=== PATIENT | female | born 1930 | race Caucasian/White ===

== ENCOUNTER 2016-11-29 13:20 | Emergency (ER) | payer OTHER ==
[~2016-11-29] VITALS: Ht 160 cm; Wt 56.7 kg
[~2016-11-29 13:20] MED LIST: CAT.1 PO; LIP10 PO; LISI-209 PO; RIVA1TAB PO
[2016-11-29 13:28] VITALS: BP_SYST 148
[2016-11-29] MEDS ORDERED: NIZA150C7 PO (13:52)
[2016-11-29] MEDS ORDERED: METO-442 PO (13:52)
[2016-11-29] MEDS ORDERED: PANT20TA2 PO (13:52)
[2016-11-29] MEDS ORDERED: RIVA15TA PO (13:52)
[2016-11-29] MEDS ORDERED: HYDR25TA4 PO (13:57)
[2016-11-29] MEDS ORDERED: DILT60CA PO (13:57)
[2016-11-29] MEDS ORDERED: ATOR10TA68 PO (13:57)
[2016-11-29] MEDS ORDERED: LISI2.5T48 PO (13:57)
[2016-11-29 14:41] LABS: BILIRUBIN,URINE 1+ (NEGATIVE); CLARITY/URINE CLEAR (CLEAR); COLOR,URINE YELLOW (YELLOW); GLUCOSE,URINE NEGATIVE (NEGATIVE); KETONES,URINE TRACE (NEGATIVE); LEUKOCYTE ESTERASE ,URINE NEGATIVE (NEGATIVE); NITRITE, URINE NEGATIVE (NEGATIVE); PH,URINE 5.5 (5.0-8.0); PROTEIN URINE NEGATIVE (NEGATIVE); UROBILINOGEN,URINE 0.2 (0.2-1.0)
[2016-11-29 14:43] LABS: BLOOD, URINE TRACE (NEGATIVE)
[2016-11-29 15:06] LABS: BACTERIA,URINE FEW /HPF (None Seen); COARSE GRANULAR CASTS,URINE 0-3 /LPF (None Seen); FINE GRANULAR CASTS,URINE 0-3 /LPF (None Seen); MUCUS,URINE 1+ /LPF (None Seen); RBC,URINE 0-3 /HPF (0-3); URINE AMORPHOUS PHOSPHATES 2+ /HPF (None Seen)
[2016-11-29 15:06] LABS: ANION GAP 8 (5-15); BASOPHILS % (AUTO) 0.3 % (0.0-2.0); CALCIUM 8.6 mg/dL (8.4-11.0); CHLORIDE 103 mmol/L (98-107); CREATININE 1.68 mg/dL (0.55-1.30); EOSINOPHILS # (AUTO) 0.1 K/uL (0.0-0.4); EOSINOPHILS % (AUTO) 0.6 % (0.0-4.0); GLUCOSE 164 mg/dL (70-99); HEMOGLOBIN 12.1 g/dL (12.0-16.0); LYMPHOCYTES # (AUTO) 0.5 K/uL (1.0-5.5); LYMPHOCYTES % (AUTO) 5.9 % (20.5-51.5); MEAN CORPUSCULAR HEMOGLOBIN 32 pg (27-31); MEAN CORPUSCULAR HGB CONC 34 % (32-36); MEAN CORPUSCULAR VOLUME 96 fL (79.0-98.0); MONOCYTES # (AUTO) 0.5 K/uL (0.0-1.0); MONOCYTES % (AUTO) 5.8 % (1.7-9.3); NEUTROPHILS # (AUTO) 7.8 K/uL (1.8-7.7); NEUTROPHILS % (AUTO) 87.4 % (40.0-70.0); PLATELET COUNT (AUTO) 309 K/uL (130-430); POTASSIUM 3.6 mmol/L (3.5-5.1); RED BLOOD CELL COUNT(AUTO) 3.74 MIL/uL (4.2-6.2); RED CELL DISTRIBUTION WIDTH 13.1 % (9.0-15.0); SODIUM SERUM 138 mmol/L (136-145); UREA NITROGEN, BLOOD 24 mg/dL (8-21); WHITE BLOOD COUNT (AUTO) 8.9 K/uL (4.8-10.8)
[2016-11-29 15:19] LABS: ALANINE AMINOTRANSFERASE 11 U/L (12-78); ALBUMIN 3.4 g/dL (3.4-4.8); ASPARTATE AMINOTRANSFERASE 15 U/L (10-37); TOTAL BILIRUBIN 0.6 mg/dL (0.0-1.0); TOTAL PROTEIN, SERUM 6.5 g/dL (6.4-8.3)
[2016-11-29 15:52] VITALS: BP_SYST 154
== END 2016-11-29 15:52 | disposition home or self-care (01) ==
LOC: SED 13:20
DX: R23.2 Flushing (principal); T36.8X5A Adverse effect of other systemic antibiotics, initial encounter; J44.9 Chronic obstructive pulmonary disease, unspecified; I10 Essential (primary) hypertension; I48.91 Unspecified atrial fibrillation; F17.200 Nicotine dependence, unspecified, uncomplicated; Z86.73 Personal history of transient ischemic attack (TIA), and cerebral infarction without residual deficits; Z79.899 Other long term (current) drug therapy; Y92.89 Other specified places as the place of occurrence of the external cause
CPT/HCPCS: 36415; 80053; 81000-TC; 85025; 93005; 99285

== ENCOUNTER 2018-02-04 10:45 | Inpatient (IN) | payer OTHER ==
[~2018-02-04] VITALS: Ht 157.5 cm; Wt 51.9 kg
[2018-02-04] VITALS (7 sets, daily range): BP systolic 122–200
[~2018-02-04 10:45] MED LIST changes: +ATOR10TA68 PO; +DILT60CA PO; +HYDR25TA4 PO; -LIP10 PO; -LISI-209 PO; +LISI2.5T48 PO; +METO-442 PO; +NIZA150C7 PO; +PANT20TA2 PO; +RIVA15TA PO; -RIVA1TAB PO
[2018-02-04 11:43] LABS: BASOPHILS % (AUTO) 0.7 % (0.0-2.0); EOSINOPHILS % (AUTO) 0.6 % (0.0-4.0); HEMATOCRIT 42.5 % (36-48); HEMOGLOBIN 13.3 g/dL (12.0-16.0); LYMPHOCYTES # (AUTO) 0.5 K/uL (1.0-5.5); LYMPHOCYTES % (AUTO) 7.6 % (20.5-51.5); MEAN CORPUSCULAR HEMOGLOBIN 31 pg (27-31); MEAN CORPUSCULAR HGB CONC 31 % (32-36); MEAN CORPUSCULAR VOLUME 99 fL (79.0-98.0); MONOCYTES # (AUTO) 0.3 K/uL (0.0-1.0); MONOCYTES % (AUTO) 5.3 % (1.7-9.3); NEUTROPHILS # (AUTO) 5.4 K/uL (1.8-7.7); NEUTROPHILS % (AUTO) 85.8 % (40.0-70.0); PLATELET COUNT (AUTO) 384 K/uL (130-430); RED BLOOD CELL COUNT(AUTO) 4.31 MIL/uL (4.2-6.2); RED CELL DISTRIBUTION WIDTH 13.2 % (9.0-15.0); WHITE BLOOD COUNT (AUTO) 6.2 K/uL (4.8-10.8)
[2018-02-04 11:57] LABS: ANION GAP 9 (5-15); CALCIUM 9.7 mg/dL (8.4-11.0); CHLORIDE 102 mmol/L (98-107); CREATININE 1.17 mg/dL (0.55-1.30); GLUCOSE 171 mg/dL (70-99); POTASSIUM 4.4 mmol/L (3.5-5.1); SODIUM SERUM 141 mmol/L (136-145); UREA NITROGEN, BLOOD 17 mg/dL (8-21)
[2018-02-04 12:01] LABS: INR 1.5 (0.8-1.2)
[2018-02-04 12:02] LABS: ALANINE AMINOTRANSFERASE 14 U/L (12-78); ALBUMIN 3.5 g/dL (3.4-4.8); ASPARTATE AMINOTRANSFERASE 16 U/L (10-37); TOTAL BILIRUBIN 1.3 mg/dL (0.0-1.0)
[2018-02-04 13:34] LABS: BILIRUBIN,URINE NEGATIVE (NEGATIVE); BLOOD, URINE 2+ (NEGATIVE); CLARITY/URINE SL HAZY (CLEAR); COLOR,URINE YELLOW (YELLOW); GLUCOSE,URINE NEGATIVE (NEGATIVE); KETONES,URINE TRACE (NEGATIVE); LEUKOCYTE ESTERASE ,URINE NEGATIVE (NEGATIVE); NITRITE, URINE POSITIVE (NEGATIVE); PH,URINE 5.5 (5.0-8.0); PROTEIN URINE TRACE (NEGATIVE); UROBILINOGEN,URINE 0.2 (0.2-1.0)
[2018-02-04 14:21] LABS: WBC,URINE 0-3 /HPF (0-3)
[2018-02-04 14:22] LABS: BACTERIA,URINE MANY /HPF (None Seen); MUCUS,URINE None Seen /LPF (None Seen); YEAST,URINE None Seen /HPF (None Seen)
[2018-02-04] MEDS: ATORVASTATIN 10 MG TABLET PO SCH (15:15)
[2018-02-04] MEDS ORDERED: NIZATIDINE 150 MG PO SCH (15:15)
[2018-02-04] MEDS ORDERED: cloNIDine HCL 0.2 MG TABLET PO PRN (15:30)
[2018-02-04] MEDS ORDERED: ATORVASTATIN 10 MG TABLET PO ONE (16:00)
[2018-02-04] MEDS ORDERED: cefTRIAXone 1 GM in D5W 50 ML IV ONE (16:15)
[2018-02-04] MEDS ORDERED: COMMUNICATION ORDER XX ONE (17:45)
[2018-02-04] MEDS: METOPROLOL TARTRATE 50 MG TABLET PO SCH (20:58)
[2018-02-04] MEDS: FUROSEMIDE 20 MG/2 ML VIAL IVP SCH (20:59)
[2018-02-04] MEDS: LISINOPRIL 5 MG TABLET PO SCH (20:59)
[2018-02-04] MEDS ORDERED: DILTIAZEM HCL 60 MG PO SCH (21:00)
[2018-02-05 01:32] VITALS: BP_SYST 139
[2018-02-05] MEDS: PANTOPRAZOLE SODIUM 40 MG TAB PO SCH (06:30)
[2018-02-05 06:52] LABS: BASOPHILS # (AUTO) 0.1 K/uL (0.0-0.2); BASOPHILS % (AUTO) 1.3 % (0.0-2.0); EOSINOPHILS # (AUTO) 0.1 K/uL (0.0-0.4); EOSINOPHILS % (AUTO) 2.7 % (0.0-4.0); HEMATOCRIT 36.4 % (36-48); HEMOGLOBIN 12.3 g/dL (12.0-16.0); LYMPHOCYTES # (AUTO) 0.7 K/uL (1.0-5.5); LYMPHOCYTES % (AUTO) 13.1 % (20.5-51.5); MEAN CORPUSCULAR HEMOGLOBIN 33 pg (27-31); MEAN CORPUSCULAR HGB CONC 34 % (32-36); MEAN CORPUSCULAR VOLUME 98 fL (79.0-98.0); MONOCYTES # (AUTO) 0.6 K/uL (0.0-1.0); MONOCYTES % (AUTO) 10.9 % (1.7-9.3); NEUTROPHILS # (AUTO) 3.6 K/uL (1.8-7.7); PLATELET COUNT (AUTO) 327 K/uL (130-430); RED BLOOD CELL COUNT(AUTO) 3.72 MIL/uL (4.2-6.2); RED CELL DISTRIBUTION WIDTH 13.3 % (9.0-15.0); WHITE BLOOD COUNT (AUTO) 5.1 K/uL (4.8-10.8)
[2018-02-05 07:01] LABS: ANION GAP 7 (5-15); CALCIUM 8.9 mg/dL (8.4-11.0); CHLORIDE 103 mmol/L (98-107); CREATININE 1.16 mg/dL (0.55-1.30); GLUCOSE 91 mg/dL (70-99); POTASSIUM 4.4 mmol/L (3.5-5.1); SODIUM SERUM 141 mmol/L (136-145); UREA NITROGEN, BLOOD 15 mg/dL (8-21)
[2018-02-05 07:53] VITALS: BP_SYST 147
[2018-02-05] MEDS ORDERED: ENOXAPARIN SODIUM 40 MG/0.4 ML SYRINGE SUBCUT SCH (09:00)
[2018-02-05] MEDS ORDERED: PANTOPRAZOLE PO SCH (09:00)
[2018-02-05] MEDS: LISINOPRIL 5 MG TABLET PO SCH ×2 (09:42→20:00)
[2018-02-05] MEDS: ATORVASTATIN 10 MG TABLET PO SCH (09:42)
[2018-02-05] MEDS: HYDROCHLOROTHIAZIDE 25 MG TABLET (HCTZ) PO SCH (09:42)
[2018-02-05] MEDS: METOPROLOL TARTRATE 50 MG TABLET PO SCH ×2 (09:43→20:01)
[2018-02-05] MEDS: FUROSEMIDE 20 MG/2 ML VIAL IVP SCH ×2 (09:50→20:02)
[2018-02-05] MEDS: cefTRIAXone 1 GM in D5W 50 ML IV SCH (09:51)
[2018-02-05] MEDS: DILTIAZEM HCL 120 MG CAP.SR.24H PO SCH (09:54)
[2018-02-05 12:10] VITALS: BP_SYST 129
[2018-02-05 16:48] VITALS: BP_SYST 136
[2018-02-05] MEDS: RIVAROXABAN 15 MG TABLET PO SCH (19:20)
[2018-02-05 19:55] VITALS: BP_SYST 128
[2018-02-06] VITALS (7 sets, daily range): BP systolic 100–160
[2018-02-06 06:39] LABS: ALANINE AMINOTRANSFERASE 12 U/L (12-78); ANION GAP 7 (5-15); ASPARTATE AMINOTRANSFERASE 18 U/L (10-37); CALCIUM 9.3 mg/dL (8.4-11.0); CHLORIDE 100 mmol/L (98-107); CHOLESTEROL 143 mg/dL (<200); CREATININE 1.39 mg/dL (0.55-1.30); GLUCOSE 84 mg/dL (70-99); HDL CHOLESTEROL 47 mg/dL (>55); LDL CHOLESTEROL 82 mg/dL (<100); POTASSIUM 3.3 mmol/L (3.5-5.1); SODIUM SERUM 139 mmol/L (136-145); THYROID STIMULATING HORMONE 3.16 uIu/mL (0.34-4.82); TOTAL BILIRUBIN 0.9 mg/dL (0.0-1.0); TRIGLYCERIDES 114 mg/dL (30-150); UREA NITROGEN, BLOOD 19 mg/dL (8-21)
[2018-02-06] MEDS: PANTOPRAZOLE SODIUM 40 MG TAB PO SCH (06:53)
[2018-02-06 06:59] LABS: BASOPHILS # (AUTO) 0.1 K/uL (0.0-0.2); BASOPHILS % (AUTO) 1.4 % (0.0-2.0); EOSINOPHILS # (AUTO) 0.1 K/uL (0.0-0.4); EOSINOPHILS % (AUTO) 2.4 % (0.0-4.0); HEMATOCRIT 40.4 % (36-48); HEMOGLOBIN 12.9 g/dL (12.0-16.0); LYMPHOCYTES # (AUTO) 0.9 K/uL (1.0-5.5); LYMPHOCYTES % (AUTO) 15.5 % (20.5-51.5); MEAN CORPUSCULAR HEMOGLOBIN 31 pg (27-31); MEAN CORPUSCULAR HGB CONC 32 % (32-36); MEAN CORPUSCULAR VOLUME 98 fL (79.0-98.0); MONOCYTES # (AUTO) 0.6 K/uL (0.0-1.0); NEUTROPHILS # (AUTO) 3.8 K/uL (1.8-7.7); NEUTROPHILS % (AUTO) 70.7 % (40.0-70.0); PLATELET COUNT (AUTO) 371 K/uL (130-430); RED BLOOD CELL COUNT(AUTO) 4.12 MIL/uL (4.2-6.2); RED CELL DISTRIBUTION WIDTH 13.3 % (9.0-15.0); WHITE BLOOD COUNT (AUTO) 5.5 K/uL (4.8-10.8)
[2018-02-06] MEDS: HYDROCHLOROTHIAZIDE 25 MG TABLET (HCTZ) PO SCH (09:20)
[2018-02-06] MEDS: LISINOPRIL 5 MG TABLET PO SCH ×2 (09:21→20:21)
[2018-02-06] MEDS: METOPROLOL TARTRATE 50 MG TABLET PO SCH ×2 (09:21→20:21)
[2018-02-06] MEDS: FUROSEMIDE 20 MG/2 ML VIAL IVP SCH ×2 (09:22→20:22)
[2018-02-06] MEDS: cefTRIAXone 1 GM in D5W 50 ML IV SCH (09:23)
[2018-02-06] MEDS: DILTIAZEM HCL 120 MG CAP.SR.24H PO SCH (09:24)
[2018-02-06] MEDS: ATORVASTATIN 10 MG TABLET PO SCH (09:24)
[2018-02-06] MEDS ORDERED: POTASSIUM CHLORIDE 20 MEQ TAB.PRT.SR PO ONE (13:00)
[2018-02-06] MEDS: RIVAROXABAN 15 MG TABLET PO SCH (18:09)
[2018-02-07] MEDS: ATORVASTATIN 10 MG TABLET PO SCH (08:30)
[2018-02-07] MEDS: cefTRIAXone 1 GM in D5W 50 ML IV SCH (08:30)
[2018-02-07] MEDS: PANTOPRAZOLE SODIUM 40 MG TAB PO SCH (08:30)
[2018-02-07] MEDS: LISINOPRIL 5 MG TABLET PO SCH ×2 (08:32→21:19)
[2018-02-07] MEDS: METOPROLOL TARTRATE 50 MG TABLET PO SCH ×2 (08:33→21:20)
[2018-02-07] MEDS: DILTIAZEM HCL 120 MG CAP.SR.24H PO SCH (08:33)
[2018-02-07] MEDS: FUROSEMIDE 20 MG/2 ML VIAL IVP SCH ×2 (08:34→21:00)
[2018-02-07] MEDS: HYDROCHLOROTHIAZIDE 25 MG TABLET (HCTZ) PO SCH (08:34)
[2018-02-07 08:45] VITALS: BP_SYST 161
[2018-02-07 12:40] VITALS: BP_SYST 139
[2018-02-07 17:03] VITALS: BP_SYST 129
[2018-02-07] MEDS: RIVAROXABAN 15 MG TABLET PO SCH (17:58)
[2018-02-07 20:00] VITALS: BP_SYST 150
[2018-02-08] VITALS: BP_SYST 131
[2018-02-08] MEDS: PANTOPRAZOLE SODIUM 40 MG TAB PO SCH (06:44)
[2018-02-08] MEDS: FUROSEMIDE 20 MG/2 ML VIAL IVP SCH ×2 (08:19→22:51)
[2018-02-08] MEDS: LISINOPRIL 5 MG TABLET PO SCH ×2 (08:20→22:50)
[2018-02-08] MEDS: METOPROLOL TARTRATE 50 MG TABLET PO SCH ×2 (08:20→22:50)
[2018-02-08] MEDS: ATORVASTATIN 10 MG TABLET PO SCH (08:20)
[2018-02-08] MEDS: DILTIAZEM HCL 120 MG CAP.SR.24H PO SCH (08:21)
[2018-02-08] MEDS: HYDROCHLOROTHIAZIDE 25 MG TABLET (HCTZ) PO SCH (08:21)
[2018-02-08] MEDS: cefTRIAXone 1 GM in D5W 50 ML IV SCH (08:22)
[2018-02-08 08:25] VITALS: BP_SYST 146
[2018-02-08 13:04] VITALS: BP_SYST 117
[2018-02-08 16:50] VITALS: BP_SYST 115
[2018-02-08] MEDS: RIVAROXABAN 15 MG TABLET PO SCH (17:08)
[2018-02-08] MEDS ORDERED: POTASSIUM CHLORIDE 20 MEQ/PKT PACKET PO ONE (19:45)
[2018-02-08] MEDS ORDERED: POTASSIUM CHLORIDE 10 MEQ TAB.PRT.SR PO SCH (23:30)
[2018-02-08 23:45] VITALS: BP_SYST 125
[2018-02-09] MEDS: PANTOPRAZOLE SODIUM 40 MG TAB PO SCH (06:35)
[2018-02-09 07:00] LABS: BASOPHILS # (AUTO) 0.1 K/uL (0.0-0.2); BASOPHILS % (AUTO) 0.9 % (0.0-2.0); EOSINOPHILS # (AUTO) 0.1 K/uL (0.0-0.4); EOSINOPHILS % (AUTO) 2.1 % (0.0-4.0); HEMATOCRIT 42.6 % (36-48); HEMOGLOBIN 13.9 g/dL (12.0-16.0); LYMPHOCYTES # (AUTO) 0.9 K/uL (1.0-5.5); LYMPHOCYTES % (AUTO) 13.7 % (20.5-51.5); MEAN CORPUSCULAR HEMOGLOBIN 32 pg (27-31); MEAN CORPUSCULAR HGB CONC 33 % (32-36); MEAN CORPUSCULAR VOLUME 98 fL (79.0-98.0); MONOCYTES # (AUTO) 0.8 K/uL (0.0-1.0); MONOCYTES % (AUTO) 11.7 % (1.7-9.3); NEUTROPHILS # (AUTO) 4.6 K/uL (1.8-7.7); NEUTROPHILS % (AUTO) 71.6 % (40.0-70.0); PLATELET COUNT (AUTO) 360 K/uL (130-430); RED BLOOD CELL COUNT(AUTO) 4.36 MIL/uL (4.2-6.2); RED CELL DISTRIBUTION WIDTH 13.1 % (9.0-15.0); WHITE BLOOD COUNT (AUTO) 6.5 K/uL (4.8-10.8)
[2018-02-09 07:22] LABS: ANION GAP 12 (5-15); CHLORIDE 97 mmol/L (98-107); GLUCOSE 110 mg/dL (70-99); POTASSIUM 3.5 mmol/L (3.5-5.1); SODIUM SERUM 139 mmol/L (136-145); UREA NITROGEN, BLOOD 29 mg/dL (8-21)
[2018-02-09 08:00] VITALS: BP_SYST 124
[2018-02-09] MEDS: cefTRIAXone 1 GM in D5W 50 ML IV SCH (08:19)
[2018-02-09] MEDS: FUROSEMIDE 20 MG/2 ML VIAL IVP SCH (08:21)
[2018-02-09] MEDS: METOPROLOL TARTRATE 50 MG TABLET PO SCH (08:22)
[2018-02-09] MEDS: ATORVASTATIN 10 MG TABLET PO SCH (08:22)
[2018-02-09] MEDS: LISINOPRIL 5 MG TABLET PO SCH (08:22)
[2018-02-09] MEDS: DILTIAZEM HCL 120 MG CAP.SR.24H PO SCH (08:23)
[2018-02-09] MEDS: HYDROCHLOROTHIAZIDE 25 MG TABLET (HCTZ) PO SCH (08:23)
[2018-02-09 10:51] VITALS: BP_SYST 114
[2018-02-09 12:39] VITALS: BP_SYST 116
[2018-02-10] MEDS ORDERED: FUROSEMIDE 20 MG TABLET PO SCH (09:00)
== END 2018-02-09 14:21 | DRG 291 ==
LOC: SED 10:45 → STU 12:48
PROVIDERS: ADMIT Family Medicine; ATTEND Family Medicine
DX: I13.0 Hypertensive heart and chronic kidney disease with heart failure and stage 1 through stage 4 chronic kidney disease, or unspecified chronic kidney disease (principal); J18.9 Pneumonia, unspecified organism; I50.43 Acute on chronic combined systolic (congestive) and diastolic (congestive) heart failure; N39.0 Urinary tract infection, site not specified; J44.0 Chronic obstructive pulmonary disease with (acute) lower respiratory infection; M19.90 Unspecified osteoarthritis, unspecified site; J20.9 Acute bronchitis, unspecified; I27.20 Pulmonary hypertension, unspecified; I48.2 Chronic atrial fibrillation; N18.9 Chronic kidney disease, unspecified; Z86.73 Personal history of transient ischemic attack (TIA), and cerebral infarction without residual deficits; Z90.710 Acquired absence of both cervix and uterus; Z79.899 Other long term (current) drug therapy; Z79.01 Long term (current) use of anticoagulants; Z91.040 Latex allergy status; Z87.81 Personal history of (healed) traumatic fracture
CPT/HCPCS: 36415; 36600; 71045; 80048; 80053; 80061; 81000-TC; 82803-TC; 83605; 83880; 84443-TC; 84484; 85025; 85610-TC; 85730-TC; 87040-TC; 87086; 93005; 93306; 96365; 97116-GP; 99291; J0696; J1940; J1956; J7060

== ENCOUNTER 2018-06-07 12:21 | Inpatient (IN) | payer OTHER ==
[~2018-06-07] VITALS: Ht 160 cm; Wt 47.9 kg
[~2018-06-07 12:21] MED LIST changes: -CAT.1 PO; -NIZA150C7 PO
[2018-06-07 12:24] VITALS: BP_SYST 99
[2018-06-07] MEDS ORDERED: DILTIAZEM HCL 25 MG/5 ML VIAL IVP ONE (13:15)
[2018-06-07 13:27] LABS: BASOPHILS # (AUTO) 0.1 K/uL (0.0-0.2); BASOPHILS % (AUTO) 0.6 % (0.0-2.0); EOSINOPHILS % (AUTO) 0.3 % (0.0-4.0); HEMATOCRIT 42.5 % (36-48); HEMOGLOBIN 13.9 g/dL (12.0-16.0); LYMPHOCYTES # (AUTO) 0.5 K/uL (1.0-5.5); MEAN CORPUSCULAR HEMOGLOBIN 32 pg (27-31); MEAN CORPUSCULAR HGB CONC 33 % (32-36); MEAN CORPUSCULAR VOLUME 99 fL (79.0-98.0); MONOCYTES # (AUTO) 0.6 K/uL (0.0-1.0); MONOCYTES % (AUTO) 6.4 % (1.7-9.3); NEUTROPHILS # (AUTO) 7.5 K/uL (1.8-7.7); NEUTROPHILS % (AUTO) 86.7 % (40.0-70.0); PLATELET COUNT (AUTO) 514 K/uL (130-430); RED BLOOD CELL COUNT(AUTO) 4.32 MIL/uL (4.2-6.2); RED CELL DISTRIBUTION WIDTH 14.7 % (9.0-15.0); WHITE BLOOD COUNT (AUTO) 8.7 K/uL (4.8-10.8)
[2018-06-07 13:44] LABS: ANION GAP 13 (5-15); CALCIUM 9.1 mg/dL (8.4-11.0); CHLORIDE 98 mmol/L (98-107); CREATININE 1.33 mg/dL (0.55-1.30); GLUCOSE 81 mg/dL (70-99); POTASSIUM 4.6 mmol/L (3.5-5.1); SODIUM SERUM 135 mmol/L (136-145); UREA NITROGEN, BLOOD 23 mg/dL (8-21)
[2018-06-07 13:47] LABS: INR 1.5 (0.8-1.2); PROTHROMBIN TIME 14.9 SECS (9.5-12.5)
[2018-06-07 13:49] LABS: ALANINE AMINOTRANSFERASE 10 U/L (12-78); ALBUMIN 2.9 g/dL (3.4-4.8); ASPARTATE AMINOTRANSFERASE 16 U/L (10-37); TOTAL BILIRUBIN 1.1 mg/dL (0.0-1.0)
[2018-06-07] MEDS ORDERED: FURO-150 PO (14:51)
[2018-06-07] MEDS ORDERED: IPRA3AMP9 INH (14:51)
[2018-06-07] MEDS ORDERED: POTA10TA15 PO (14:51)
[2018-06-07] MEDS ORDERED: [UNRECOGNIZED DRUG - CODE] PO (14:51)
[2018-06-07] MEDS ORDERED: LEVO750T45 PO (14:51)
[2018-06-07 16:32] VITALS: BP_SYST 125
[2018-06-07] MEDS ORDERED: ATORVASTATIN 10 MG TABLET PO ONE (18:30)
[2018-06-07] MEDS ORDERED: LISINOPRIL 5 MG TABLET PO ONE (18:30)
[2018-06-07] MEDS ORDERED: guaiFENesin/DEXTROMETHORPHAN 10 ML UDC PO PRN (18:30)
[2018-06-07] MEDS ORDERED: FUROSEMIDE 20 MG/2 ML VIAL IVP ONE (18:45)
[2018-06-07] MEDS ORDERED: LevALBUTEROL HCL 1.25 MG/0.5 ML *CONC.* VIAL.NEB (XOPENEX CONC.) INH PRN (18:45)
[2018-06-07 20:00] VITALS: BP_SYST 107
[2018-06-07] MEDS ORDERED: FUROSEMIDE 20 MG/2 ML VIAL IVP SCH (21:00)
[2018-06-07] MEDS: METOPROLOL TARTRATE 50 MG TABLET PO SCH (21:00)
[2018-06-07] MEDS: DILTIAZEM HCL 60 MG TABLET PO SCH (21:02)
[2018-06-07 23:26] VITALS: BP_SYST 107
[2018-06-08 01:28] VITALS: BP_SYST 108
[2018-06-08 07:17] LABS: BASOPHILS % (AUTO) 0.4 % (0.0-2.0); EOSINOPHILS # (AUTO) 0.1 K/uL (0.0-0.4); EOSINOPHILS % (AUTO) 0.9 % (0.0-4.0); HEMATOCRIT 39.5 % (36-48); LYMPHOCYTES # (AUTO) 0.4 K/uL (1.0-5.5); LYMPHOCYTES % (AUTO) 5.3 % (20.5-51.5); MEAN CORPUSCULAR HEMOGLOBIN 33 pg (27-31); MEAN CORPUSCULAR HGB CONC 33 % (32-36); MEAN CORPUSCULAR VOLUME 99 fL (79.0-98.0); MONOCYTES # (AUTO) 0.6 K/uL (0.0-1.0); MONOCYTES % (AUTO) 6.7 % (1.7-9.3); NEUTROPHILS # (AUTO) 7.4 K/uL (1.8-7.7); NEUTROPHILS % (AUTO) 86.7 % (40.0-70.0); PLATELET COUNT (AUTO) 441 K/uL (130-430); RED BLOOD CELL COUNT(AUTO) 3.99 MIL/uL (4.2-6.2); RED CELL DISTRIBUTION WIDTH 14.5 % (9.0-15.0); WHITE BLOOD COUNT (AUTO) 8.5 K/uL (4.8-10.8)
[2018-06-08 07:41] LABS: ALANINE AMINOTRANSFERASE 9 U/L (12-78); ALBUMIN 2.8 g/dL (3.4-4.8); ANION GAP 16 (5-15); ASPARTATE AMINOTRANSFERASE 14 U/L (10-37); CHLORIDE 97 mmol/L (98-107); CHOLESTEROL 145 mg/dL (<200); CREATININE 1.65 mg/dL (0.55-1.30); GLUCOSE 79 mg/dL (70-99); HDL CHOLESTEROL 38 mg/dL (>55); LDL CHOLESTEROL 85 mg/dL (<100); POTASSIUM 4.1 mmol/L (3.5-5.1); SODIUM SERUM 135 mmol/L (136-145); THYROID STIMULATING HORMONE 3.72 uIu/mL (0.34-4.82); TOTAL BILIRUBIN 0.8 mg/dL (0.0-1.0); TRIGLYCERIDES 115 mg/dL (30-150); UREA NITROGEN, BLOOD 27 mg/dL (8-21)
[2018-06-08] MEDS: LevALBUTEROL HCL 1.25 MG/0.5 ML *CONC.* VIAL.NEB (XOPENEX CONC.) INH SCH ×3 (07:42→19:50)
[2018-06-08 08:00] VITALS: BP_SYST 122
[2018-06-08] MEDS: HYDROCHLOROTHIAZIDE 25 MG TABLET (HCTZ) PO SCH (08:50)
[2018-06-08] MEDS: ATORVASTATIN 10 MG TABLET PO SCH (08:51)
[2018-06-08] MEDS: POTASSIUM CHLORIDE 10 MEQ TAB.PRT.SR PO SCH (08:51)
[2018-06-08] MEDS: DILTIAZEM HCL 60 MG TABLET PO SCH ×2 (08:52→21:00)
[2018-06-08] MEDS: METOPROLOL TARTRATE 50 MG TABLET PO SCH ×2 (08:52→21:00)
[2018-06-08] MEDS: LISINOPRIL 5 MG TABLET PO SCH (08:52)
[2018-06-08] MEDS: FUROSEMIDE 40 MG TABLET PO SCH (08:53)
[2018-06-08] MEDS: RIVAROXABAN 15 MG TABLET PO SCH (08:53)
[2018-06-08 12:14] VITALS: BP_SYST 111
[2018-06-08 16:48] VITALS: BP_SYST 99
[2018-06-08 20:00] VITALS: BP_SYST 84
[2018-06-08 23:37] VITALS: BP_SYST 121
[2018-06-09] MEDS: LevALBUTEROL HCL 1.25 MG/0.5 ML *CONC.* VIAL.NEB (XOPENEX CONC.) INH SCH ×4 (01:00→19:50)
[2018-06-09 08:00] VITALS: BP_SYST 92
[2018-06-09 08:31] LABS: ANION GAP 15 (5-15); CALCIUM 8.9 mg/dL (8.4-11.0); CHLORIDE 97 mmol/L (98-107); CREATININE 2.46 mg/dL (0.55-1.30); GLUCOSE 83 mg/dL (70-99); POTASSIUM 3.6 mmol/L (3.5-5.1); SODIUM SERUM 134 mmol/L (136-145); UREA NITROGEN, BLOOD 35 mg/dL (8-21)
[2018-06-09] MEDS ORDERED: NS 250 ML IV ONE (08:45)
[2018-06-09] MEDS: LISINOPRIL 5 MG TABLET PO SCH (08:52)
[2018-06-09] MEDS: ATORVASTATIN 10 MG TABLET PO SCH (08:53)
[2018-06-09] MEDS: POTASSIUM CHLORIDE 10 MEQ TAB.PRT.SR PO SCH (08:53)
[2018-06-09] MEDS: FUROSEMIDE 40 MG TABLET PO SCH (08:53)
[2018-06-09] MEDS: METOPROLOL TARTRATE 50 MG TABLET PO SCH ×2 (08:53→20:54)
[2018-06-09] MEDS: HYDROCHLOROTHIAZIDE 25 MG TABLET (HCTZ) PO SCH (08:54)
[2018-06-09] MEDS: DILTIAZEM HCL 60 MG TABLET PO SCH ×2 (08:55→20:54)
[2018-06-09] MEDS: RIVAROXABAN 15 MG TABLET PO SCH (09:00)
[2018-06-09 13:49] VITALS: BP_SYST 103
[2018-06-09 16:45] VITALS: BP_SYST 125
[2018-06-09 20:00] VITALS: BP_SYST 94
[2018-06-10 01:23] VITALS: BP_SYST 94
[2018-06-10] MEDS: PANTOPRAZOLE SODIUM 40 MG TAB PO SCH (06:06)
[2018-06-10] MEDS: LevALBUTEROL HCL 1.25 MG/0.5 ML *CONC.* VIAL.NEB (XOPENEX CONC.) INH SCH ×4 (06:12→19:00)
[2018-06-10 07:34] LABS: ALANINE AMINOTRANSFERASE 10 U/L (12-78); ALBUMIN 2.6 g/dL (3.4-4.8); ANION GAP 11 (5-15); ASPARTATE AMINOTRANSFERASE 15 U/L (10-37); CALCIUM 8.4 mg/dL (8.4-11.0); CHLORIDE 100 mmol/L (98-107); CREATININE 3.02 mg/dL (0.55-1.30); GLUCOSE 79 mg/dL (70-99); POTASSIUM 4.4 mmol/L (3.5-5.1); SODIUM SERUM 136 mmol/L (136-145); TOTAL BILIRUBIN 0.6 mg/dL (0.0-1.0); UREA NITROGEN, BLOOD 43 mg/dL (8-21)
[2018-06-10 08:00] VITALS: BP_SYST 118
[2018-06-10] MEDS: METOPROLOL TARTRATE 50 MG TABLET PO SCH ×2 (09:00→21:03)
[2018-06-10] MEDS: ATORVASTATIN 10 MG TABLET PO SCH (09:11)
[2018-06-10] MEDS: POTASSIUM CHLORIDE 10 MEQ TAB.PRT.SR PO SCH (09:12)
[2018-06-10] MEDS: LISINOPRIL 5 MG TABLET PO SCH (09:12)
[2018-06-10] MEDS: DILTIAZEM HCL 60 MG TABLET PO SCH ×2 (09:12→21:03)
[2018-06-10] MEDS: RIVAROXABAN 15 MG TABLET PO SCH (09:16)
[2018-06-10] MEDS: NACL 0.9% 1,000 ML IV SCH ×2 (09:20→18:19)
[2018-06-10 12:53] VITALS: BP_SYST 90
[2018-06-10 16:49] VITALS: BP_SYST 96
[2018-06-10 19:00] VITALS: BP_SYST 125
[2018-06-10 20:00] VITALS: BP_SYST 125
[2018-06-10] MEDS ORDERED: MEGESTROL ACETATE 400 MG/10 ML UDC PO SCH (21:00)
[2018-06-10] MEDS ORDERED: MEGESTROL ACETATE 40 MG TABLET PO SCH (21:30)
[2018-06-11] VITALS (12 sets, daily range): BP systolic 91–140
[2018-06-11] MEDS: LevALBUTEROL HCL 1.25 MG/0.5 ML *CONC.* VIAL.NEB (XOPENEX CONC.) INH SCH ×4 (00:59→19:35)
[2018-06-11] MEDS: NACL 0.9% 1,000 ML IV SCH (04:42)
[2018-06-11] MEDS: PANTOPRAZOLE SODIUM 40 MG TAB PO SCH (05:38)
[2018-06-11 07:29] LABS: BASOPHILS % (AUTO) 0.5 % (0.0-2.0); EOSINOPHILS # (AUTO) 0.1 K/uL (0.0-0.4); EOSINOPHILS % (AUTO) 1.2 % (0.0-4.0); HEMATOCRIT 35.9 % (36-48); HEMOGLOBIN 12.2 g/dL (12.0-16.0); LYMPHOCYTES # (AUTO) 0.4 K/uL (1.0-5.5); LYMPHOCYTES % (AUTO) 5.7 % (20.5-51.5); MEAN CORPUSCULAR HEMOGLOBIN 34 pg (27-31); MEAN CORPUSCULAR HGB CONC 34 % (32-36); MEAN CORPUSCULAR VOLUME 100 fL (79.0-98.0); MONOCYTES # (AUTO) 0.3 K/uL (0.0-1.0); NEUTROPHILS # (AUTO) 5.8 K/uL (1.8-7.7); NEUTROPHILS % (AUTO) 87.6 % (40.0-70.0); PLATELET COUNT (AUTO) 379 K/uL (130-430); RED BLOOD CELL COUNT(AUTO) 3.61 MIL/uL (4.2-6.2); RED CELL DISTRIBUTION WIDTH 14.8 % (9.0-15.0); WHITE BLOOD COUNT (AUTO) 6.6 K/uL (4.8-10.8)
[2018-06-11 07:44] LABS: ALANINE AMINOTRANSFERASE 8 U/L (12-78); ALBUMIN 2.6 g/dL (3.4-4.8); ANION GAP 9 (5-15); ASPARTATE AMINOTRANSFERASE 15 U/L (10-37); CALCIUM 8.4 mg/dL (8.4-11.0); CHLORIDE 103 mmol/L (98-107); CREATININE 2.45 mg/dL (0.55-1.30); GLUCOSE 92 mg/dL (70-99); POTASSIUM 4.4 mmol/L (3.5-5.1); SODIUM SERUM 136 mmol/L (136-145); TOTAL BILIRUBIN 0.7 mg/dL (0.0-1.0); UREA NITROGEN, BLOOD 42 mg/dL (8-21)
[2018-06-11] MEDS: POTASSIUM CHLORIDE 10 MEQ TAB.PRT.SR PO SCH (08:13)
[2018-06-11] MEDS: ATORVASTATIN 10 MG TABLET PO SCH (08:14)
[2018-06-11] MEDS: METOPROLOL TARTRATE 50 MG TABLET PO SCH ×2 (08:15→21:19)
[2018-06-11] MEDS: LISINOPRIL 5 MG TABLET PO SCH (08:15)
[2018-06-11] MEDS: DILTIAZEM HCL 60 MG TABLET PO SCH ×2 (08:16→21:00)
[2018-06-11] MEDS: RIVAROXABAN 15 MG TABLET PO SCH (08:17)
[2018-06-11] MEDS: MEGESTROL ACETATE 400 MG/10 ML UDC PO SCH ×2 (08:34→21:00)
[2018-06-11] MEDS ORDERED: FUROSEMIDE 40 MG/4 ML VIAL IVP ONE ×2 (14:30→17:00)
[2018-06-11] MEDS ORDERED: methylPREDNISolone SOD SUCC/PF 62.5 MG/ML VIAL IVP ONE (15:00)
[2018-06-11] MEDS: cefTRIAXone 1 GM IVPB PREMIX 50 ML IV SCH (16:08)
[2018-06-11] MEDS ORDERED: AZITHROMYCIN 250 MG in NS 250 ML IV SCH (17:00)
[2018-06-11] MEDS ORDERED: FUROSEMIDE 40 MG/4 ML VIAL ONE (17:11)
[2018-06-11] MEDS ORDERED: AZITHROMYCIN 250 MG TABLET PO ONE (18:00)
[2018-06-11] MEDS: methylPREDNISolone SOD SUCC/PF 62.5 MG/ML VIAL IVP SCH (21:19)
[2018-06-12] VITALS (24 sets, daily range): BP systolic 79–142
[2018-06-12] MEDS: LevALBUTEROL HCL 1.25 MG/0.5 ML *CONC.* VIAL.NEB (XOPENEX CONC.) INH SCH ×4 (00:40→19:34)
[2018-06-12] MEDS ORDERED: LORazepam 2 MG/ML VIAL IVP PRN (02:00)
[2018-06-12 06:07] LABS: BASOPHILS % (AUTO) 0.2 % (0.0-2.0); EOSINOPHILS % (AUTO) 0.1 % (0.0-4.0); HEMATOCRIT 36.1 % (36-48); LYMPHOCYTES # (AUTO) 0.2 K/uL (1.0-5.5); MEAN CORPUSCULAR HEMOGLOBIN 33 pg (27-31); MEAN CORPUSCULAR HGB CONC 33 % (32-36); MEAN CORPUSCULAR VOLUME 100 fL (79.0-98.0); MONOCYTES % (AUTO) 0.9 % (1.7-9.3); NEUTROPHILS # (AUTO) 4.8 K/uL (1.8-7.7); NEUTROPHILS % (AUTO) 93.8 % (40.0-70.0); PLATELET COUNT (AUTO) 378 K/uL (130-430)
[2018-06-12] MEDS: PANTOPRAZOLE SODIUM 40 MG TAB PO SCH (06:39)
[2018-06-12 07:14] LABS: ALANINE AMINOTRANSFERASE 9 U/L (12-78); ALBUMIN 2.9 g/dL (3.4-4.8); ANION GAP 11 (5-15); ASPARTATE AMINOTRANSFERASE 14 U/L (10-37); CALCIUM 8.5 mg/dL (8.4-11.0); CHLORIDE 103 mmol/L (98-107); CREATININE 1.91 mg/dL (0.55-1.30); GLUCOSE 171 mg/dL (70-99); POTASSIUM 4.2 mmol/L (3.5-5.1); SODIUM SERUM 139 mmol/L (136-145); TOTAL BILIRUBIN 0.5 mg/dL (0.0-1.0); UREA NITROGEN, BLOOD 42 mg/dL (8-21)
[2018-06-12] MEDS: methylPREDNISolone SOD SUCC/PF 62.5 MG/ML VIAL IVP SCH ×2 (08:59→20:03)
[2018-06-12] MEDS ORDERED: MUPIROCIN NASAL 2% OINT. NS SCH (09:00)
[2018-06-12] MEDS: POTASSIUM CHLORIDE 10 MEQ TAB.PRT.SR PO SCH (09:00)
[2018-06-12] MEDS: MEGESTROL ACETATE 400 MG/10 ML UDC PO SCH (09:00)
[2018-06-12] MEDS: ATORVASTATIN 10 MG TABLET PO SCH (09:00)
[2018-06-12] MEDS: LISINOPRIL 5 MG TABLET PO SCH (09:00)
[2018-06-12] MEDS: METOPROLOL TARTRATE 50 MG TABLET PO SCH ×2 (09:01→20:03)
[2018-06-12] MEDS: DILTIAZEM HCL 60 MG TABLET PO SCH (09:01)
[2018-06-12] MEDS: RIVAROXABAN 15 MG TABLET PO SCH (09:02)
[2018-06-12] MEDS: AZITHROMYCIN 250 MG TABLET PO SCH (09:02)
[2018-06-12] MEDS ORDERED: FUROSEMIDE 40 MG/4 ML VIAL IVP ONE (09:30)
[2018-06-12] MEDS: cefTRIAXone 1 GM IVPB PREMIX 50 ML IV SCH (16:45)
[2018-06-12] MEDS ORDERED: COMMUNICATION ORDER XX ONE (19:30)
[2018-06-12] MEDS: FUROSEMIDE 40 MG/4 ML VIAL IVP SCH (20:03)
[2018-06-12] MEDS ORDERED: DILTIAZEM HCL 60 MG TABLET PO SCH (21:00)
[2018-06-13] VITALS (24 sets, daily range): BP systolic 96–127
[2018-06-13] MEDS: LevALBUTEROL HCL 1.25 MG/0.5 ML *CONC.* VIAL.NEB (XOPENEX CONC.) INH SCH ×4 (00:56→19:34)
[2018-06-13] MEDS: PANTOPRAZOLE SODIUM 40 MG TAB PO SCH (06:02)
[2018-06-13 06:42] LABS: BASOPHILS % (AUTO) 0.2 % (0.0-2.0); HEMATOCRIT 36.9 % (36-48); HEMOGLOBIN 12.4 g/dL (12.0-16.0); LYMPHOCYTES # (AUTO) 0.2 K/uL (1.0-5.5); LYMPHOCYTES % (AUTO) 2.2 % (20.5-51.5); MEAN CORPUSCULAR HEMOGLOBIN 33 pg (27-31); MEAN CORPUSCULAR HGB CONC 34 % (32-36); MEAN CORPUSCULAR VOLUME 99 fL (79.0-98.0); MONOCYTES # (AUTO) 0.1 K/uL (0.0-1.0); MONOCYTES % (AUTO) 1.6 % (1.7-9.3); NEUTROPHILS # (AUTO) 8.3 K/uL (1.8-7.7); PLATELET COUNT (AUTO) 409 K/uL (130-430); RED BLOOD CELL COUNT(AUTO) 3.73 MIL/uL (4.2-6.2); RED CELL DISTRIBUTION WIDTH 14.8 % (9.0-15.0); WHITE BLOOD COUNT (AUTO) 8.6 K/uL (4.8-10.8)
[2018-06-13 07:26] LABS: ANION GAP 11 (5-15); CALCIUM 8.7 mg/dL (8.4-11.0); CHLORIDE 104 mmol/L (98-107); CREATININE 1.94 mg/dL (0.55-1.30); GLUCOSE 167 mg/dL (70-99); SODIUM SERUM 143 mmol/L (136-145); UREA NITROGEN, BLOOD 51 mg/dL (8-21)
[2018-06-13 07:37] LABS: ALANINE AMINOTRANSFERASE 8 U/L (12-78); ALBUMIN 2.9 g/dL (3.4-4.8); ASPARTATE AMINOTRANSFERASE 13 U/L (10-37); TOTAL BILIRUBIN 0.4 mg/dL (0.0-1.0)
[2018-06-13] MEDS: methylPREDNISolone SOD SUCC/PF 62.5 MG/ML VIAL IVP SCH ×2 (08:23→20:34)
[2018-06-13] MEDS: AZITHROMYCIN 250 MG TABLET PO SCH (08:24)
[2018-06-13] MEDS: FUROSEMIDE 40 MG/4 ML VIAL IVP SCH ×2 (08:24→20:38)
[2018-06-13] MEDS: ATORVASTATIN 10 MG TABLET PO SCH (08:24)
[2018-06-13] MEDS: LISINOPRIL 5 MG TABLET PO SCH (08:24)
[2018-06-13] MEDS: POTASSIUM CHLORIDE 10 MEQ TAB.PRT.SR PO SCH (08:24)
[2018-06-13] MEDS: METOPROLOL TARTRATE 50 MG TABLET PO SCH ×2 (08:25→20:38)
[2018-06-13] MEDS: cefTRIAXone 1 GM IVPB PREMIX 50 ML IV SCH (15:52)
[2018-06-14] VITALS (25 sets, daily range): BP systolic 94–143
[2018-06-14] MEDS: LevALBUTEROL HCL 1.25 MG/0.5 ML *CONC.* VIAL.NEB (XOPENEX CONC.) INH SCH ×4 (01:00→19:36)
[2018-06-14] MEDS: PANTOPRAZOLE SODIUM 40 MG TAB PO SCH (06:01)
[2018-06-14 07:07] LABS: ANION GAP 11 (5-15); CALCIUM 8.9 mg/dL (8.4-11.0); CHLORIDE 106 mmol/L (98-107); CREATININE 1.76 mg/dL (0.55-1.30); GLUCOSE 192 mg/dL (70-99); POTASSIUM 4.1 mmol/L (3.5-5.1); SODIUM SERUM 145 mmol/L (136-145); UREA NITROGEN, BLOOD 54 mg/dL (8-21)
[2018-06-14 07:18] LABS: ALANINE AMINOTRANSFERASE 8 U/L (12-78); ALBUMIN 2.8 g/dL (3.4-4.8); ASPARTATE AMINOTRANSFERASE 11 U/L (10-37); TOTAL BILIRUBIN 0.3 mg/dL (0.0-1.0)
[2018-06-14 07:37] LABS: BASOPHILS % (AUTO) 0.1 % (0.0-2.0); HEMATOCRIT 38.7 % (36-48); HEMOGLOBIN 12.8 g/dL (12.0-16.0); LYMPHOCYTES # (AUTO) 0.2 K/uL (1.0-5.5); LYMPHOCYTES % (AUTO) 2.2 % (20.5-51.5); MEAN CORPUSCULAR HEMOGLOBIN 33 pg (27-31); MEAN CORPUSCULAR HGB CONC 33 % (32-36); MEAN CORPUSCULAR VOLUME 100 fL (79.0-98.0); MONOCYTES # (AUTO) 0.3 K/uL (0.0-1.0); MONOCYTES % (AUTO) 3.3 % (1.7-9.3); NEUTROPHILS # (AUTO) 8.3 K/uL (1.8-7.7); NEUTROPHILS % (AUTO) 94.4 % (40.0-70.0); PLATELET COUNT (AUTO) 363 K/uL (130-430); RED BLOOD CELL COUNT(AUTO) 3.86 MIL/uL (4.2-6.2); RED CELL DISTRIBUTION WIDTH 15.1 % (9.0-15.0); WHITE BLOOD COUNT (AUTO) 8.8 K/uL (4.8-10.8)
[2018-06-14] MEDS: FUROSEMIDE 40 MG/4 ML VIAL IVP SCH ×2 (08:25→21:00)
[2018-06-14] MEDS: methylPREDNISolone SOD SUCC/PF 62.5 MG/ML VIAL IVP SCH (08:25)
[2018-06-14] MEDS: METOPROLOL TARTRATE 50 MG TABLET PO SCH ×2 (08:26→21:01)
[2018-06-14] MEDS: AZITHROMYCIN 250 MG TABLET PO SCH (08:27)
[2018-06-14] MEDS: POTASSIUM CHLORIDE 10 MEQ TAB.PRT.SR PO SCH (08:27)
[2018-06-14] MEDS: LISINOPRIL 5 MG TABLET PO SCH (08:28)
[2018-06-14] MEDS: ATORVASTATIN 10 MG TABLET PO SCH (08:28)
[2018-06-14] MEDS ORDERED: predniSONE 1 MG TABLET PO ONE (09:00)
[2018-06-14] MEDS ORDERED: PREDNISONE 20 MG TABLET PO ONE (09:30)
[2018-06-14] MEDS: DILTIAZEM HCL 30 MG TABLET PO SCH ×3 (11:40→23:12)
[2018-06-14] MEDS: cefTRIAXone 1 GM IVPB PREMIX 50 ML IV SCH (15:40)
[2018-06-14] MEDS: PREDNISONE 20 MG TABLET PO SCH (17:20)
[2018-06-14] MEDS: RIVAROXABAN 15 MG TABLET PO SCH (17:21)
[2018-06-15] VITALS (24 sets, daily range): BP systolic 85–138
[2018-06-15] MEDS: LevALBUTEROL HCL 1.25 MG/0.5 ML *CONC.* VIAL.NEB (XOPENEX CONC.) INH SCH ×4 (01:00→19:50)
[2018-06-15 05:45] LABS: BASOPHILS % (AUTO) 0.4 % (0.0-2.0); EOSINOPHILS % (AUTO) 0.1 % (0.0-4.0); HEMATOCRIT 39.7 % (36-48); HEMOGLOBIN 13.1 g/dL (12.0-16.0); LYMPHOCYTES # (AUTO) 0.2 K/uL (1.0-5.5); LYMPHOCYTES % (AUTO) 2.2 % (20.5-51.5); MEAN CORPUSCULAR HEMOGLOBIN 33 pg (27-31); MEAN CORPUSCULAR HGB CONC 33 % (32-36); MEAN CORPUSCULAR VOLUME 99 fL (79.0-98.0); MONOCYTES # (AUTO) 0.4 K/uL (0.0-1.0); MONOCYTES % (AUTO) 4.4 % (1.7-9.3); NEUTROPHILS % (AUTO) 92.9 % (40.0-70.0); PLATELET COUNT (AUTO) 359 K/uL (130-430); RED BLOOD CELL COUNT(AUTO) 4.01 MIL/uL (4.2-6.2); RED CELL DISTRIBUTION WIDTH 15.1 % (9.0-15.0); WHITE BLOOD COUNT (AUTO) 9.6 K/uL (4.8-10.8)
[2018-06-15 05:47] LABS: ALANINE AMINOTRANSFERASE 12 U/L (12-78); ANION GAP 9 (5-15); ASPARTATE AMINOTRANSFERASE 12 U/L (10-37); CALCIUM 8.7 mg/dL (8.4-11.0); CHLORIDE 102 mmol/L (98-107); CREATININE 1.64 mg/dL (0.55-1.30); GLUCOSE 187 mg/dL (70-99); POTASSIUM 3.3 mmol/L (3.5-5.1); SODIUM SERUM 141 mmol/L (136-145); TOTAL BILIRUBIN 0.4 mg/dL (0.0-1.0); UREA NITROGEN, BLOOD 50 mg/dL (8-21)
[2018-06-15] MEDS: DILTIAZEM HCL 30 MG TABLET PO SCH ×3 (06:07→17:45)
[2018-06-15] MEDS: PANTOPRAZOLE SODIUM 40 MG TAB PO SCH (06:07)
[2018-06-15] MEDS: FUROSEMIDE 40 MG/4 ML VIAL IVP SCH (08:15)
[2018-06-15] MEDS: POTASSIUM CHLORIDE 10 MEQ TAB.PRT.SR PO SCH (08:15)
[2018-06-15] MEDS: AZITHROMYCIN 250 MG TABLET PO SCH (08:15)
[2018-06-15] MEDS: METOPROLOL TARTRATE 50 MG TABLET PO SCH ×2 (08:16→21:00)
[2018-06-15] MEDS: LISINOPRIL 5 MG TABLET PO SCH (08:16)
[2018-06-15] MEDS: PREDNISONE 20 MG TABLET PO SCH ×2 (08:25→17:45)
[2018-06-15] MEDS: POTASSIUM CHLORIDE 20 MEQ/PKT PACKET PO SCH ×2 (09:36→20:48)
[2018-06-15] MEDS: ATORVASTATIN 10 MG TABLET PO SCH (09:37)
[2018-06-15] MEDS: NS 250 ML IV ONE ×2 (11:43→11:58)
[2018-06-15] MEDS: cefTRIAXone 1 GM IVPB PREMIX 50 ML IV SCH (16:06)
[2018-06-15] MEDS: RIVAROXABAN 15 MG TABLET PO SCH (17:48)
[2018-06-15] MEDS: NYSTATIN 15 GM TOPICAL POWDER TP SCH (20:52)
[2018-06-16] VITALS (22 sets, daily range): BP systolic 88–152
[2018-06-16] MEDS: LevALBUTEROL HCL 1.25 MG/0.5 ML *CONC.* VIAL.NEB (XOPENEX CONC.) INH SCH ×3 (01:22→21:11)
[2018-06-16 06:00] LABS: ANION GAP 7 (5-15); CALCIUM 8.7 mg/dL (8.4-11.0); CHLORIDE 104 mmol/L (98-107); GLUCOSE 219 mg/dL (70-99); POTASSIUM 4.4 mmol/L (3.5-5.1); SODIUM SERUM 141 mmol/L (136-145); UREA NITROGEN, BLOOD 57 mg/dL (8-21)
[2018-06-16] MEDS: PANTOPRAZOLE SODIUM 40 MG TAB PO SCH (06:09)
[2018-06-16] MEDS: DILTIAZEM HCL 30 MG TABLET PO SCH ×2 (06:09)
[2018-06-16] MEDS: NYSTATIN 15 GM TOPICAL POWDER TP SCH ×2 (08:28→21:41)
[2018-06-16] MEDS: POTASSIUM CHLORIDE 20 MEQ/PKT PACKET PO SCH ×2 (08:28→21:39)
[2018-06-16] MEDS: FUROSEMIDE 40 MG TABLET PO SCH (08:29)
[2018-06-16] MEDS: LISINOPRIL 5 MG TABLET PO SCH (08:30)
[2018-06-16] MEDS: AZITHROMYCIN 250 MG TABLET PO SCH (08:30)
[2018-06-16] MEDS: METOPROLOL TARTRATE 50 MG TABLET PO SCH ×2 (08:31→21:40)
[2018-06-16] MEDS: ATORVASTATIN 10 MG TABLET PO SCH (08:31)
[2018-06-16] MEDS: PREDNISONE 20 MG TABLET PO SCH (08:32)
[2018-06-16] MEDS: DILTIAZEM HCL 60 MG TABLET PO SCH ×2 (14:07→21:41)
[2018-06-16] MEDS: cefTRIAXone 1 GM IVPB PREMIX 50 ML IV SCH (15:38)
[2018-06-16] MEDS: PREDNISONE 10 MG TABLET PO SCH (17:37)
[2018-06-16] MEDS: RIVAROXABAN 15 MG TABLET PO SCH (17:38)
[2018-06-16] MEDS ORDERED: SENNOSIDES/DOCUSATE SODIUM 1 TAB TABLET(SENOKOT-S) PO PRN (18:00)
[2018-06-17] MEDS: LevALBUTEROL HCL 1.25 MG/0.5 ML *CONC.* VIAL.NEB (XOPENEX CONC.) INH SCH ×3 (02:19→13:21)
[2018-06-17] MEDS: DILTIAZEM HCL 60 MG TABLET PO SCH ×2 (06:37→13:39)
[2018-06-17] MEDS: PANTOPRAZOLE SODIUM 40 MG TAB PO SCH (06:37)
[2018-06-17 08:30] VITALS: BP_SYST 123
[2018-06-17] MEDS: ATORVASTATIN 10 MG TABLET PO SCH (08:30)
[2018-06-17] MEDS: LISINOPRIL 5 MG TABLET PO SCH (08:30)
[2018-06-17] MEDS: PREDNISONE 10 MG TABLET PO SCH (08:30)
[2018-06-17] MEDS: METOPROLOL TARTRATE 50 MG TABLET PO SCH (08:31)
[2018-06-17] MEDS: FUROSEMIDE 40 MG TABLET PO SCH (08:32)
[2018-06-17] MEDS: NYSTATIN 15 GM TOPICAL POWDER TP SCH (08:32)
[2018-06-17] MEDS ORDERED: BISACODYL 10 MG/SUPPOSITORY RC PRN (09:00)
[2018-06-17 12:40] VITALS: BP_SYST 128
[2018-06-17] MEDS: POTASSIUM CHLORIDE 20 MEQ/PKT PACKET PO SCH (13:25)
[2018-06-17] MEDS: cefTRIAXone 1 GM IVPB PREMIX 50 ML IV SCH (15:42)
[2018-06-17 15:56] VITALS: BP_SYST 128
[2018-06-20 10:39] LABS: CANCER AG, 125 344.2 U/mL (0.0-38.1)
== END 2018-06-17 16:45 | DRG 291 ==
LOC: SED 12:21 → STU 15:51 → SIC 06-11 17:02 → STU 06-16 19:15
PROVIDERS: ADMIT Family Medicine; ATTEND Family Medicine
PROC: 5A09357 Assistance with Respiratory Ventilation, Less than 24 Consecutive Hours, Continuous Positive Airway Pressure (ICD-10-PCS; 2018-06-11)
PROC: 5A09357 Assistance with Respiratory Ventilation, Less than 24 Consecutive Hours, Continuous Positive Airway Pressure (ICD-10-PCS; 2018-06-12)
PROC: 0W993ZZ Drainage of Right Pleural Cavity, Percutaneous Approach (ICD-10-PCS; principal; 2018-06-17)
DX: I13.0 Hypertensive heart and chronic kidney disease with heart failure and stage 1 through stage 4 chronic kidney disease, or unspecified chronic kidney disease (principal); J96.01 Acute respiratory failure with hypoxia; E43 Unspecified severe protein-calorie malnutrition; I50.43 Acute on chronic combined systolic (congestive) and diastolic (congestive) heart failure; N17.9 Acute kidney failure, unspecified; Z68.1 Body mass index [BMI] 19.9 or less, adult; J44.1 Chronic obstructive pulmonary disease with (acute) exacerbation; J20.9 Acute bronchitis, unspecified; I27.21 Secondary pulmonary arterial hypertension; E78.5 Hyperlipidemia, unspecified; I48.2 Chronic atrial fibrillation; J45.909 Unspecified asthma, uncomplicated; K21.9 Gastro-esophageal reflux disease without esophagitis; M19.90 Unspecified osteoarthritis, unspecified site; Z79.82 Long term (current) use of aspirin; N18.9 Chronic kidney disease, unspecified; Z79.01 Long term (current) use of anticoagulants; Z90.710 Acquired absence of both cervix and uterus; Z87.81 Personal history of (healed) traumatic fracture; Z91.040 Latex allergy status; Z86.73 Personal history of transient ischemic attack (TIA), and cerebral infarction without residual deficits; Z79.899 Other long term (current) drug therapy; E86.0 Dehydration
CPT/HCPCS: 32555; 36415; 71045; 71250-TC; 76700-TC; 80048; 80053; 80061; 83605; 83735-TC; 83880; 84443-TC; 84484; 85025; 85610-TC; 85730-TC; 86301; 86304; 87040-TC; 87081; 93005; 93306; 94640; 94660; 94664; 94760; 96374; 97530-GP; 99285; C1729; G0378; J0456; J0696; J1940; J2930; J3490; J7030; J7040; J7050; J7512; J7612; Q0144